=== PATIENT | female | born 1960 | race Hispanic/Latino ===

== ENCOUNTER 2021-05-15 14:01 | Outpatient (CLI) | payer OTHER ==
[2021-05-15] MEDS ORDERED: ALBUTEROL 2.5 MG/3 ML NEBU IH ONE (15:15)
== END 2021-05-15 14:02 | disposition home or self-care (01) ==
LOC: PF 14:01
PROVIDERS: ATTEND Internal Medicine
DX: J44.9 Chronic obstructive pulmonary disease, unspecified (principal); F32.A Depression, unspecified
CPT/HCPCS: 94640; A9270; 94060